=== PATIENT | male | born 1975 | race African-American/Black ===

== ENCOUNTER 2016-12-27 15:30 | Emergency (ER) | payer SELFPAY ==
[2016-12-27] MEDS ORDERED: Lisinopril 5 MG TAB ONE ×2 (16:07→16:10)
[2016-12-27] MEDS ORDERED: Ibuprofen 200 MG TAB ONE (16:07)
== END 2016-12-27 16:40 ==
LOC: BURERS 15:30
DX: I10 Essential (primary) hypertension (principal); F17.210 Nicotine dependence, cigarettes, uncomplicated; Z79.899 Other long term (current) drug therapy
CPT/HCPCS: 99283

== ENCOUNTER 2016-12-28 07:08 | Emergency (ER) | payer SELFPAY ==
[2016-12-28] MEDS ORDERED: Ibuprofen 200 MG TAB ONE (07:35)
== END 2016-12-28 07:43 | disposition home or self-care (01) ==
LOC: BURERS 07:08
DX: I10 Essential (primary) hypertension (principal); F17.210 Nicotine dependence, cigarettes, uncomplicated; Z79.899 Other long term (current) drug therapy
CPT/HCPCS: 99282